=== PATIENT | female | born 1965 | race Caucasian/White ===

== ENCOUNTER 2020-09-04 14:47 | Emergency (ER) | payer MEDICARE, SELFPAY ==
--- NOTE | 2020-09-04 14:50 | XRR_ITS ---
PROCEDURE INFORMATION: Exam: XR Left Wrist Exam date and time: 09/04/2020 2:50 PM Age: 55 years old Clinical indication: Injury or trauma; Blunt trauma (contusions or hematomas); Wrist; Left; Patient HX: Fall while roller skating TECHNIQUE: Imaging protocol: XR Left wrist. Views: 3 or more views. COMPARISON: No relevant prior studies available. FINDINGS: Bones/joints: There is a longitudinal nondisplaced linear interarticular fracture involving the distal aspect of the radius. The carpal bones appear well aligned. Soft tissues: Unremarkable XR/XR wrist LT min 3V* [id number] IMPRESSION: 1. Longitudinal nondisplaced linear interarticular fracture 2. Otherwise negative examination
[2020-09-04 14:55] VITALS: BP 218/129; PULSE 100; RESP 18; TEMP 36.6; O2SAT 98; BMI 35.2
[2020-09-04 14:58] VITALS: BP 198/130; PULSE 88; RESP 18; O2SAT 98
--- NOTE | 2020-09-04 15:00 | W.ED.UPPEXIN ---
HPI - Extremity Injury (Upper) General: Chief Complaint: Extremity Injury, Upper Stated Complaint: L WRIST INJURY/FALL Time Seen by Provider: 09/04/20 14:50 Source: patient Mode of arrival: ambulatory Limitations: no limitations History of Present Illness: HPI narrative: Patient is a 55-year-old female who presents to ED today for evaluation of a left wrist injury that she sustained after falling while skating. Patient denies any other injuries at this time. MD complaint: injury to: left and wrist Onset (ago): minute(s) Other injuries: none Relieving factors: immobilization Exacerbating factors: movement of extremity Context: fall Associated symptoms: Reports no associated symptoms; Denies neck pain Review of Systems Musc: Reports: joint pain (L wrist), joint swelling (L wrist) and limited range of motion (secondary to pain); Denies: neck pain or back pain Physical Exam Const: COMMON NORMALS: no acute distress, average body habitus, patient oriented x3, no limitations, healthy appearing, alert and well nourished Extremity: GENERAL: Yes normal exam except as noted OTHER: TTP L distal radial wrist; dec ROM secondary to pain; radial pulse and cap refill normal; sensory intact Neuro: COMMON NORMALS: patient oriented x3, moves all extremities, no focal motor deficits and no sensory deficits noted SENSORIUM/ORIENTATION: Yes alert Skin: COMMON NORMALS: no rashes or lesions noted GENERAL SKIN EXAM: no rashes or lesions noted Course Vital Signs: Vital signs: Vital Signs Temperature 97.9 F 09/04/20 14:55 Pulse Rate 88 09/04/20 14:58 Respiratory Rate 18 09/04/20 14:58 Blood Pressure 198/130 09/04/20 14:58 Pulse Oximetry 98 09/04/20 14:58 MDM - Extremity Injury (Upper) MDM Narrative: Medical decision making narrative: will splint and have CM set her up with orthopedics; NV intact Imaging Data^: XR L wrist: My impression: intra-articular distal radial fx Discharge Plan Discharge Patient Disposition: Home Clinical Impression: Closed fracture of left distal radius Qualifiers: Encounter type: initial encounter Fracture morphology: other fracture Qualified Code(s): S52.592A - Other fractures of lower end of left radius, initial encounter for closed fracture Condition: Stable Prescriptions: New hydrocodone-acetaminophen 5-325 mg tablet 1 tab PO Q4H PRN (Reason: pain) Qty: 20 RF: 0 Discharge Orders: Discharge ED (Routine); Ordered 09/04/20 Ordered By: Amy Johnston Patient Instructions: Wrist Fracture in Adults (ED), Splint Care (ED) Activity Restrictions/Additional Instructions: As discussed case management should contact you early next week to set you up with your orthopedic follow-up appointment. Coding Level of Care Code ED Production Cost Estimator for Rui Fwd Exam Expanded Problem Focused
[2020-09-04] MEDS: morphine 4 mg/mL SDV 1 mL IM (15:21)
[2020-09-04 15:43] VITALS: BP 198/130; PULSE 88; RESP 18; O2SAT 98
--- NOTE | 2020-09-06 10:57 | DCPLANNER ---
Addendum entered by Fani Killian 09/07/20 09:15: Maryse from ortho called manager rn case stating that the clinic was unable to reach patient to schedule a follow up appointment. retail manager called phone number [phone]. retail manager was unable to speak with patient or leave a voicemail for patient to schedule a follow up appointment. Original Note: retail manager had message to schedule a follow up appointment for patient with ortho. retail manager called the ortho clinic, spoke with Maryse, gave clinic patients information. Clinic will call patient with appointment information.
--- NOTE | 2020-09-10 07:21 | DCPLANNER ---
Patient had a follow up appointment scheduled for 09.08.20 with ortho - patient did attend appointment.
== END 2020-09-04 15:44 | disposition home or self-care (01) ==
PROVIDERS: Emergency Provider Physician Assistant; PCP Nurse Practitioner Family
DX: S52.592A Other fractures of lower end of left radius, initial encounter for closed fracture (principal); W19.XXXA Unspecified fall, initial encounter; Y93.51 Activity, roller skating (inline) and skateboarding
CPT/HCPCS: 12345; 29125; 73110; 96372; 99281; 99283; J2270

== ENCOUNTER 2020-09-08 10:00 | Outpatient (CLI) | payer MEDICARE, SELFPAY | END 2020-09-08 10:01 | disposition home or self-care (01) | LOC: SPT 10:01 | PROVIDERS: PCP Nurse Practitioner Family; Visit Provider Orthopaedic Surgery | DX: Z46.89 Encounter for fitting and adjustment of other specified devices (principal); S52.592D Other fractures of lower end of left radius, subsequent encounter for closed fracture with routine healing; X58.XXXD Exposure to other specified factors, subsequent encounter | CPT/HCPCS: 97760; L3982 ==

== ENCOUNTER → 2020-09-15 08:55 | Outpatient (BNVA) | payer MEDICARE, SELFPAY | PROVIDERS: PCP Nurse Practitioner Family; Visit Provider Orthopaedic Surgery | DX: S52.592A Other fractures of lower end of left radius, initial encounter for closed fracture (principal); X58.XXXA Exposure to other specified factors, initial encounter | CPT/HCPCS: 73110 ==

== ENCOUNTER → 2020-10-05 11:54 | Outpatient (BNVA) | payer MEDICARE, SELFPAY | PROVIDERS: PCP Nurse Practitioner Family; Visit Provider Orthopaedic Surgery | DX: S52.592A Other fractures of lower end of left radius, initial encounter for closed fracture (principal); X58.XXXA Exposure to other specified factors, initial encounter | CPT/HCPCS: 73110 ==

== ENCOUNTER 2024-01-02 09:24 | Outpatient (CLI) | payer MEDICARE, SELFPAY ==
--- NOTE | 2024-01-02 09:30 | MR_ITS ---
WS: [id number] MRI LEFT KNEE NONCONTRAST TECHNIQUE: Axial PD, coronal PD fat sat, coronal PD, sagittal PD, and sagittal PD fat-sat images obta ined. CLINICAL INFORMATION: L KNEE PAIN COMPARISON: None. FINDINGS: Distal quadriceps and patella tendons are intact. Small to moderate suprapatellar effusion. Prepatell ar soft tissue edema. Diffuse T1 and T2 hyperintensity involving the ACL compatible with diffuse muco id degeneration. Diffuse thickening. Recommend correlation for prior ACL injury. Normal PCL. Mild chondromalacia patella. Normal medial and lateral patellar retinaculum. Normal medial and latera l collateral ligaments. Mild chronic thinning of the medial and lateral meniscus. No acute appearing meniscal tears. Popliteus appears intact. Edema involving the anterolateral tibial plateau likely due to contusion or degenerative edema. Recom mend correlation with prior trauma. Subchondral cystic change along the tibial spines. Subchondral cy stic change along the femoral intercondylar notch. A few small parameniscal cysts along the anterior horn lateral meniscus. Moderate chondromalacia medial and lateral joint compartments. MR/MR knee LT wo con* [id number] IMPRESSION: 1. Diffuse thickening and mucoid degeneration of the ACL., Correlation for kiera or ACL injury. Normal PCL. 2. Chronic thinning of the medial and lateral meniscus. No acute appearing men iscal tears. Small parameniscal cysts along the anterior horn lateral meniscus. 3. Small suprapatellar effusion. 4. Mild chondromalacia patella. 5. Edema involving the anterolateral tibial plateau. Recommend correlation for recent injury with contusion. Minimal depression of the anterolateral tibial p lateau. 6. Moderate tricompartment arthritis. 7. No other acute findings. Outbridge grading: grade III: partial-thickness cartilage loss with focal ulcer ation
== END 2024-01-02 09:25 | disposition home or self-care (01) ==
LOC: RAD 09:26
PROVIDERS: PCP Nurse Practitioner Family; Visit Provider Nurse Practitioner Family
DX: M23.611 Other spontaneous disruption of anterior cruciate ligament of right knee (principal); M23.305 Other meniscus derangements, unspecified medial meniscus, unspecified knee; M17.12 Unilateral primary osteoarthritis, left knee
CPT/HCPCS: 73721